=== PATIENT | female | born 1955 | race Caucasian/White ===

== ENCOUNTER 2019-11-02 05:49 | Day surgery (SDC) | payer MEDICARE, MEDICAID ==
[2019-10-26 15:00] LABS: BASOPHILS % (AUTO) 0.9 % (0-1); EOSINOPHILS # (AUTO) 0.1 X10'3 (0-0.9); EOSINOPHILS % (AUTO) 1.4 % (0-6); LYMPHOCYTES # (AUTO) 1.9 X10'3 (1.1-4.8); LYMPHOCYTES % (AUTO) 34.7 % (21-51); MEAN CORPUSCULAR HEMOGLOBIN 30.6 PG (27.0-31.0); MEAN CORPUSCULAR HGB CONC 33.4 g/dL (33.0-36.5); MEAN CORPUSCULAR VOLUME 91.7 FL (78-98); MEAN PLATELET VOLUME 6.2 FL (7.4-10.4); MONOCYTES # (AUTO) 0.4 X10'3 (0-0.9); MONOCYTES % (AUTO) 7.1 % (2-12); NEUTROPHILS % (AUTO) 55.9 % (42-75); PRE OP HEMATOCRIT 38.3 % (35.0-45.0); PRE OP HEMOGLOBIN 12.8 g/dL (12.0-16.0); PRE OP PLATELET COUNT 260 X10'3 (140-440); RED BLOOD COUNT 4.17 X10'6 (4.20-5.60); RED CELL DISTRIBUTION WIDTH 13.3 % (11.5-14.5)
[2019-10-26 15:18] LABS: ALBUMIN 3.6 G/DL (3.4-5.0); ALBUMIN/GLOBULIN RATIO 1.1 (1.1-1.5); ALKALINE PHOSPHATASE 74 IU/L (46-116); BLOOD UREA NITROGEN 18 MG/DL (7-18); BUN/CREATININE RATIO 26.5 (6.6-38.0); CALCIUM 9.1 MG/DL (8.5-10.1); CHLORIDE 108 MMOL/L (99-107); CREATININE 0.68 MG/DL (0.40-0.90); PRE OP ALT 26 U/L (30-65); PRE OP ANION GAP 9 (8-16); PRE OP AST 17 U/L (10-37); PRE OP BILIRUB, TOTAL 0.2 MG/DL (0.0-1.0); PRE OP GLUCOSE 106 MG/DL (70-104); PRE OP POTASSIUM 3.9 MMOL/L (3.4-5.1); PRE OP SODIUM 144 MMOL/L (135-145); TOTAL CARBON DIOXIDE 26.9 MMOL/L (24-32); TOTAL PROTEIN 6.9 G/DL (6.4-8.2); eGFR 88 ML/MIN
[~2019-11-02] VITALS: Ht 162.6 cm; Wt 72.1 kg
[~2019-11-02 05:49] MED LIST: ACET-3284 PO; CARB1TAB41 PO; IBUP-1984 PO; PRAM0.129 PO; QUET100T33 PO; TRAZ-256 PO; VITAMIN D3 PO; ceFAZolin 2gm in dextrose, iso 50 ML IV ONE; famotidine 20mg tablet PO ONE; ringers solution, lacted 1,000 ML IV SCH
[2019-11-02 05:55] VITALS: BP 133/82
--- NOTE | 2019-11-02 07:45 | NUR ---
PT TEARFUL, STATES "IT HURTS". SHE FURTHER STATES SHE "WAS AFRAID TO SHOW US BECAUSE SURGERY MAY BE CANCELED". PT THEN PULLS DOWN HER MASK, THE LEFT UPPER LIP IS RED AND SWOLLEN AND THE LEFT CHEEK IS SWOLLEN. PT STATES HER LIP STARTED GETTING RED AND SWOLLEN YESTERDAY MORNING. DR VANG NOTIFIED BY PHONE AND DR MINER AT THE BEDSIDE. OKAY TO PROCEED WITH SURGERY AT THIS POINT. PT INSTRUCTED TO F/U WITH PRIMARY MD OR CLINIC POST -OP.
[2019-11-02] MEDS ORDERED: LIDOcaine 0.5% (5mg/ml) 50ml vial ONE (08:00)
[2019-11-02] MEDS ORDERED: MIDAZolam 1mg/ml 10ml vial ONE (08:05)
[2019-11-02] MEDS ORDERED: fentaNYL/PF 50MCG/1 ML 2ML syringe ONE (08:05)
[2019-11-02] MEDS ORDERED: ringers solution, lacted 1,000 ML IV SCH (08:12)
[2019-11-02] MEDS ORDERED: hydrALAZINE 20mg/ml inj. IV PRN (08:15)
[2019-11-02] MEDS ORDERED: ondansetron/PF 4mg/2ml inj IV PRN (08:15)
[2019-11-02] MEDS ORDERED: morphine 2 MG/ML inj. syringe IV PRN (08:15)
[2019-11-02] MEDS ORDERED: morphine 4 MG/ML inj SYRINge IV PRN (08:15)
[2019-11-02] MEDS ORDERED: labetalol 20mg/4ml (5mg/ml) syringe IV PRN (08:15)
[2019-11-02] MEDS ORDERED: fentaNYL/PF 50MCG/1 ML 2ML syringe IV PRN ×2 (08:15)
[2019-11-02] MEDS ORDERED: propofol 10mg/ml 20ml vial IV ONE (08:36)
[2019-11-02] MEDS ORDERED: triamcinolone acetonide 40mg/ml inj ONE (08:44)
[2019-11-02] MEDS ORDERED: BUPIVAcaine/PF 2.5 mg/ml (0.25%) 30ml vial ONE (08:44)
[2019-11-02 09:10] VITALS: BP 114/75
--- NOTE | 2019-11-02 09:10 | NUR ---
Received from OR via [facility], accompanied by Anesthesiologist Zeeshan and report given by Anesthesiolgist. PATIENT A&OX4, DENIES PAIN, V/S WNL mask to 10L [id number], NEUROVASCULAR CHECKS INTACT, 20G PIV R hand, SCD ON, DRESSING TO RIGHT WRIST CDI ELEVATED WITH ICEBAG APPLIED.
[2019-11-02 09:20] VITALS: BP 129/80
[2019-11-02 09:25] VITALS: BP 116/74
[2019-11-02 09:30] VITALS: BP 138/81
[2019-11-02 09:40] VITALS: BP 130/91
--- NOTE | 2019-11-02 10:10 | NUR ---
PATIENT A&OX4, DENIES PAIN, V/S WNL, NEUROVASCULAR CHECKS INTACT, 20G PIV LUE D/C, SCD OFF, DRESSING TO RIGHT WRIST CDI ELEVATED WITH ICEBAG APPLIED. I HAVE REVIEWED D/C INSTRUCTIONS WITH PATIENT AND FAMILY AND THEY HAVE VERBALIZED UNDERSTANDING. PATIENT D/C HOME WITH ALL BELONGINGS AND FAMILY GAVE TRANSPORT HOME. PT states pain meds have called in to pharmacy from MD office.
--- NOTE | 2019-11-02 10:10 | NUR ---
Recommended to patient to go to GP and have her facial abscess seen and assessed. Pt states she will follow up.
[2019-11-02] MEDS ORDERED: BUPIVAcaine/PF 2.5mg/ml (0.25%) 10ml vial IJ ONE (14:38)
== END 2019-11-02 10:10 | disposition home or self-care (01) ==
LOC: PAS 05:49
PROVIDERS: ATTEND Orthopaedic Surgery Hand Surgery
DX: M65.332 Trigger finger, left middle finger (principal); M65.342 Trigger finger, left ring finger; M65.331 Trigger finger, right middle finger; F17.210 Nicotine dependence, cigarettes, uncomplicated; Z11.59 Encounter for screening for other viral diseases; M81.0 Age-related osteoporosis without current pathological fracture; F41.9 Anxiety disorder, unspecified; F31.9 Bipolar disorder, unspecified; Z79.899 Other long term (current) drug therapy; Z88.8 Allergy status to other drugs, medicaments and biological substances
CPT/HCPCS: 20550; 26055; 36415; 80053; 82948; 85025; 93005; J2001; J2250; J2704; J3010; J3301; J3490; U0003; A4215; J7120

== ENCOUNTER 2020-01-01 06:32 | Day surgery (SDC) | payer MEDICARE, MEDICAID ==
[2019-12-23 11:16] LABS: BASOPHILS % (AUTO) 0.7 % (0-1); EOSINOPHILS # (AUTO) 0.1 X10'3 (0-0.9); EOSINOPHILS % (AUTO) 1.3 % (0-6); LYMPHOCYTES # (AUTO) 2.1 X10'3 (1.1-4.8); LYMPHOCYTES % (AUTO) 35.9 % (21-51); MEAN CORPUSCULAR HEMOGLOBIN 30.1 PG (27.0-31.0); MEAN CORPUSCULAR HGB CONC 33.1 g/dL (33.0-36.5); MEAN PLATELET VOLUME 6.6 FL (7.4-10.4); MONOCYTES # (AUTO) 0.4 X10'3 (0-0.9); MONOCYTES % (AUTO) 6.2 % (2-12); NEUTROPHILS # (AUTO) 3.3 X10'3 (1.8-7.7); NEUTROPHILS % (AUTO) 55.9 % (42-75); PRE OP HEMATOCRIT 41.4 % (35.0-45.0); PRE OP HEMOGLOBIN 13.7 g/dL (12.0-16.0); PRE OP PLATELET COUNT 299 X10'3 (140-440); RED BLOOD COUNT 4.55 X10'6 (4.20-5.60); RED CELL DISTRIBUTION WIDTH 13.9 % (11.5-14.5)
[2019-12-23 11:29] LABS: ALBUMIN 3.8 G/DL (3.4-5.0); ALBUMIN/GLOBULIN RATIO 1.1 (1.1-1.5); ALKALINE PHOSPHATASE 92 IU/L (46-116); BLOOD UREA NITROGEN 15 MG/DL (7-18); BUN/CREATININE RATIO 19.5 (6.6-38.0); CALCIUM 8.9 MG/DL (8.5-10.1); CHLORIDE 105 MMOL/L (99-107); CREATININE 0.77 MG/DL (0.40-0.90); PRE OP ALT 23 U/L (30-65); PRE OP ANION GAP 7 (8-16); PRE OP AST 13 U/L (10-37); PRE OP BILIRUB, TOTAL 0.3 MG/DL (0.0-1.0); PRE OP GLUCOSE 98 MG/DL (70-104); PRE OP SODIUM 139 MMOL/L (135-145); TOTAL CARBON DIOXIDE 27.2 MMOL/L (24-32); TOTAL PROTEIN 7.2 G/DL (6.4-8.2); eGFR 76 ML/MIN
[~2020-01-01] VITALS: Ht 162.6 cm; Wt 76.0 kg
[~2020-01-01 06:32] MED LIST changes: -ceFAZolin 2gm in dextrose, iso 50 ML IV ONE; +cefazolin/dext.iso 2gm/50ml 50 ML IV ONE
[2020-01-01] MEDS ORDERED: LIDOcaine 0.5% (5mg/ml) 50ml vial ONE (07:22)
[2020-01-01 07:50] VITALS: BP 123/78
[2020-01-01] MEDS ORDERED: ringers solution, lacted 1,000 ML IV SCH (09:51)
[2020-01-01] MEDS ORDERED: ondansetron/PF 4mg/2ml inj IV PRN (09:55)
[2020-01-01] MEDS ORDERED: fentaNYL/PF 50MCG/1 ML 2ML syringe IV PRN ×2 (09:55)
[2020-01-01] MEDS ORDERED: morphine 4 MG/ML inj SYRINge IV PRN (09:55)
[2020-01-01] MEDS ORDERED: morphine 2 MG/ML inj. syringe IV PRN (09:55)
[2020-01-01] MEDS ORDERED: hydrALAZINE 20mg/ml inj. IV PRN (09:55)
[2020-01-01] MEDS ORDERED: labetalol 20mg/4ml (5mg/ml) syringe IV PRN (09:55)
[2020-01-01] MEDS ORDERED: BUPIVAcaine/PF 2.5mg/ml (0.25%) 10ml vial ONE (12:12)
[2020-01-01] MEDS ORDERED: MIDAZolam 5mg/5ml vial ONE (12:41)
[2020-01-01] MEDS ORDERED: fentaNYL/PF 50MCG/1 ML 2ML syringe ONE (12:41)
[2020-01-01] MEDS ORDERED: ketorolac trometh. 30mg/ml inj. ONE (13:00)
[2020-01-01 13:14] VITALS: BP 96/51
--- NOTE | 2020-01-01 13:14 | NUR ---
Received from OR via [facility] , accompanied by Anesthesiologist KRISTOFER and report given by Anesthesiolgist. PATIENT WITH 20G PIV IN LEFT UE RUNNING LR AT 100..DENIES PAIN TO RIGHT HAND. RIGHT MIDDLE FINGER DRESSING IS SPOTTED WITH BLOOD BUT CONTAINED WITHIN DRESSING. Addendum: 01/01/20 at 1326 by Servando Dalal RN, RN Amended: Links added.
[2020-01-01 13:24] VITALS: BP 100/51
[2020-01-01 13:34] VITALS: BP 90/60
[2020-01-01 13:44] VITALS: BP 105/61
[2020-01-01 13:54] VITALS: BP 111/65
--- NOTE | 2020-01-01 14:04 | NUR ---
PATIENT HAS MET ALL DC CRITERIA FOR HOME. VSS. PAIN AT A TOLERABLE LEVEL. PATIENT TAKEN OUT VIA WHEELCHAIR TO PERSONAL VEHICLE WHERE PATIENT WAS TAKEN HOME. DRESSING CDI. ALL DC INSTRUCTIONS DISCUSSED WITH PATIENT. ALL QUESTIONS ANSWERED. Addendum: 01/01/20 at 1418 by Servando Dalal RN RN Amended: Links added.
== END 2020-01-01 14:04 | disposition home or self-care (01) ==
LOC: PAS 06:32
PROVIDERS: ATTEND Orthopaedic Surgery Hand Surgery
DX: M65.331 Trigger finger, right middle finger (principal); B07.8 Other viral warts; F31.9 Bipolar disorder, unspecified; F41.9 Anxiety disorder, unspecified; G25.81 Restless legs syndrome; F17.210 Nicotine dependence, cigarettes, uncomplicated; K21.9 Gastro-esophageal reflux disease without esophagitis; M19.90 Unspecified osteoarthritis, unspecified site; M41.9 Scoliosis, unspecified; G89.4 Chronic pain syndrome; M19.011 Primary osteoarthritis, right shoulder; E66.8 Other obesity; Z68.28 Body mass index [BMI] 28.0-28.9, adult; I27.29 Other secondary pulmonary hypertension; M81.0 Age-related osteoporosis without current pathological fracture; M85.80 Other specified disorders of bone density and structure, unspecified site; Z98.890 Other specified postprocedural states; Z90.710 Acquired absence of both cervix and uterus; Z98.51 Tubal ligation status; Z79.899 Other long term (current) drug therapy; Z20.828 Contact with and (suspected) exposure to other viral communicable diseases; Z88.8 Allergy status to other drugs, medicaments and biological substances
CPT/HCPCS: 11420; 26055; 36415; 80053; 82948; 85025; 87635; A6222; J1885; J2001; J2250; J3010; J3490; A4215; A6449; J7120

== ENCOUNTER 2021-08-18 06:51 | Day surgery (SDC) | payer MEDICARE, MEDICAID ==
[2021-08-11 14:36] LABS: BASOPHILS % (AUTO) 0.7 % (0-1); EOSINOPHILS # (AUTO) 0.1 X10'3 (0-0.9); EOSINOPHILS % (AUTO) 2.2 % (0-6); LYMPHOCYTES # (AUTO) 2.5 X10'3 (1.1-4.8); MEAN CORPUSCULAR HEMOGLOBIN 30.2 PG (27.0-31.0); MEAN CORPUSCULAR HGB CONC 34.6 g/dL (33.0-36.5); MEAN CORPUSCULAR VOLUME 87.1 FL (78-98); MEAN PLATELET VOLUME 6.4 FL (7.4-10.4); MONOCYTES # (AUTO) 0.4 X10'3 (0-0.9); MONOCYTES % (AUTO) 6.2 % (2-12); NEUTROPHILS # (AUTO) 3.3 X10'3 (1.8-7.7); NEUTROPHILS % (AUTO) 51.9 % (42-75); PRE OP HEMATOCRIT 37.4 % (35.0-45.0); PRE OP HEMOGLOBIN 12.9 g/dL (12.0-16.0); PRE OP PLATELET COUNT 272 X10'3 (140-440); RED BLOOD COUNT 4.29 X10'6 (4.20-5.60); RED CELL DISTRIBUTION WIDTH 13.1 % (11.5-14.5)
[2021-08-11 14:41] LABS: CLARITY,URINE CLEAR (Clear); COLOR,URINE YELLOW (Yellow); GLUCOSE, URINE NEGATIVE (Neg); KETONES,URINE NEGATIVE (Neg); LEUKOCYTE ESTERASE ,URINE NEGATIVE (Neg); NITRITES, URINE NEGATIVE (Neg); OCCULT BLOOD,URINE TRACE-INTACT (Neg); PROTEIN,URINE NEGATIVE (Neg); UROBILINOGEN,URINE 0.2 E.U/dL (0.2-1.0)
[2021-08-11 14:46] LABS: UA COLLECTION TYPE CLN CATCH MIDSTREAM
[2021-08-11 14:47] LABS: BACTERIA,URINE FEW /HPF (Neg); MUCUS STRANDS MODERATE /LPF (Neg); RBC,URINE 0-2 /HPF (0-2); SQUAMOUS EPITHELIAL CELL,UR MODERATE /LPF (FEW); WBC,URINE 0-4 /HPF (0-4)
[2021-08-11 14:51] LABS: ALBUMIN 3.6 G/DL (3.4-5.0); ALBUMIN/GLOBULIN RATIO 1.2 (1.1-1.5); ALKALINE PHOSPHATASE 89 IU/L (46-116); BLOOD UREA NITROGEN 16 MG/DL (7-18); BUN/CREATININE RATIO 21.9 (6.6-38.0); CALCIUM 8.9 MG/DL (8.5-10.1); CHLORIDE 103 MMOL/L (99-107); CREATININE 0.73 MG/DL (0.40-0.90); PRE OP ALT 25 U/L (30-65); PRE OP ANION GAP 9 (8-16); PRE OP AST 18 U/L (10-37); PRE OP BILIRUB, TOTAL 0.2 MG/DL (0.0-1.0); PRE OP GLUCOSE 114 MG/DL (70-104); PRE OP POTASSIUM 3.7 MMOL/L (3.4-5.1); PRE OP SODIUM 139 MMOL/L (135-145); TOTAL CARBON DIOXIDE 27.5 MMOL/L (24-32); TOTAL PROTEIN 6.7 G/DL (6.4-8.2); eGFR 81 ML/MIN
[2021-08-18] VITALS (11 sets, daily range): BP systolic 93–138; BP diastolic 57–82
[~2021-08-18] VITALS: Ht 162.6 cm; Wt 79.1 kg
[~2021-08-18 06:51] MED LIST changes: -ACET-3284 PO; +ASCO1500 PO; -CARB1TAB41 PO; +DICL100T85 TOP; +DIPH-689 PO; +METH-797 PO; -QUET100T33 PO; +QUET100T34 PO; -VITAMIN D3 PO; +[UNRECOGNIZED DRUG - CODE] PO; +[UNRECOGNIZED DRUG - OTHER] PO; +calm PO; -cefazolin/dext.iso 2gm/50ml 50 ML IV ONE; +tumeric PO
--- NOTE | 2021-08-18 07:00 | NUR ---
CMS: PEDAL PULSES STRONG. FEET PINK,WARM, AND DRY. PATIENT EXHIBITS SENSATION. PULSES MARKED
[2021-08-18] MEDS ORDERED: ceFAZolin 2gm in dextrose, iso 50 ML IV STA (07:29)
[2021-08-18] MEDS ORDERED: morphine 2 MG/ML inj. syringe IV PRN (07:55)
[2021-08-18] MEDS ORDERED: ondansetron/PF 4mg/2ml inj IV PRN (07:55)
[2021-08-18] MEDS ORDERED: meperidine/PF 25mg/ml syringe IV PRN ×3 (07:55)
[2021-08-18] MEDS ORDERED: proCHLORperazine 10 MG/2 ml inj IV PRN (07:55)
[2021-08-18] MEDS ORDERED: ringers solution, lacted 1,000 ML IV SCH (07:55)
[2021-08-18] MEDS ORDERED: morphine 4 MG/ML inj SYRINge IV PRN (07:55)
[2021-08-18] MEDS ORDERED: sevoflurane 250ml liquid IH ONE (09:32)
[2021-08-18] MEDS ORDERED: midazolam 1 mg/ML 2ml injection ONE (09:40)
[2021-08-18] MEDS ORDERED: fentaNYL/PF 50MCG/1 ML 2ML syringe ONE ×2 (09:40→10:01)
[2021-08-18] MEDS ORDERED: propofol inj 20 ML IV ONE (09:42)
[2021-08-18] MEDS ORDERED: LIDOcaine 2% (20mg/ml) 5ml vial ONE (09:42)
[2021-08-18] MEDS ORDERED: BUPIVAcaine/PF 7.5mg/ml (0.75%) 10ml vial ONE (09:50)
[2021-08-18] MEDS ORDERED: dexamethasone sod phosphate 4mg/ml inj. ONE (10:10)
[2021-08-18] MEDS ORDERED: ondansetron/PF 4mg/2ml inj ONE (10:10)
[2021-08-18] MEDS ORDERED: bacitracin 15gm ointment TP ONE (10:11)
--- NOTE | 2021-08-18 11:17 | NUR ---
Received from OR [facility] , accompanied by Anesthesiologist DR FRANCISCO and report given by Anesthesiolgist. PT PRESENTS WITH PIV 20G RIGHT WRIST, DRESSING ON LEFT FOOT, BLOOD TINGED ON HEEL, VSS. Addendum: 08/18/21 at 1135 by Diana Dalal RN, RN Amended: Links added.
--- NOTE | 2021-08-18 11:34 | NUR ---
PT'S DRESSING RE-WRAPPED WITH 4X4, GAUZE BANDAGE AND ELASTIC BANDAGE. Addendum: 08/18/21 at 1135 by Diana Dalal RN, RN Amended: Links added.
--- NOTE | 2021-08-18 12:17 | NUR ---
PT SITTING UP IN BED EATING ICE CHIPS, JELLO AND 4 PACKAGES OF FRANCES CRACKERS. PT ASKING TO GO HOME AT THIS TIME. Addendum: 08/18/21 at 1218 by Diana Dalal RN, RN Amended: Links added.
--- NOTE | 2021-08-18 12:47 | NUR ---
PT MEETS ALL DC CRITERIA. IV DC'D WITH CANULA INTACT, LEFT FOOT/HEEL DRESSING CDI, NO DRAINAGE NOTED AT THIS TIME. PT GIVEN BOOT FOR PARTIAL WEIGHT BEARING ALONG WITH CRUTCHES. DC INSTRUCTIONS REVIEWED WITH PT, PT VERBALIZED UNDERSTANDING WITH NO FURTHER QUESTIONS AT THIS TIME. PT REPORTS SHE PICKED UP RX FROM DR KENYON. PT WHEELED OUT OF HOSPITAL TO PRIVATE VEHICLE WHERE WAS WAITING. PT ADVISED TO ICE AND ELEVATE QAND FOLLOWUP WITH DR KENYON IN 1-2 WEEKS. Addendum: 08/18/21 at 1424 by Diana Dalal RN, RN Amended: Links added.
== END 2021-08-18 12:47 | disposition home or self-care (01) ==
LOC: PAS 06:51
PROVIDERS: ATTEND Podiatrist Foot & Ankle Surgery
DX: M96.0 Pseudarthrosis after fusion or arthrodesis (principal); F41.9 Anxiety disorder, unspecified; F31.9 Bipolar disorder, unspecified; G89.4 Chronic pain syndrome; M81.0 Age-related osteoporosis without current pathological fracture; M19.011 Primary osteoarthritis, right shoulder; E66.8 Other obesity; Z68.24 Body mass index [BMI] 24.0-24.9, adult; I27.29 Other secondary pulmonary hypertension; G20 Parkinson's disease; M85.80 Other specified disorders of bone density and structure, unspecified site; F17.210 Nicotine dependence, cigarettes, uncomplicated; K21.9 Gastro-esophageal reflux disease without esophagitis; M41.9 Scoliosis, unspecified; G25.81 Restless legs syndrome; G89.18 Other acute postprocedural pain; Z20.822 Contact with and (suspected) exposure to COVID-19; Z79.899 Other long term (current) drug therapy; Z79.82 Long term (current) use of aspirin; Z88.8 Allergy status to other drugs, medicaments and biological substances; Z98.890 Other specified postprocedural states; Z90.710 Acquired absence of both cervix and uterus; Z98.51 Tubal ligation status
CPT/HCPCS: 20680; 20900; 28750; 36415; 64447; 64450; 73620; 76000; 80053; 81001; 82948; 85025; 93005; A6223; C1713; J0690; J1100; J2250; J2405; J2704; J3010; J3490; J7030; J7120; U0003; U0005; Z7506; Z7508; Z7512; A4215; A4618; A6446; A6449; A7000

== ENCOUNTER 2024-07-06 09:11 | Emergency (ER) | payer MEDICARE, MEDICAID ==
[~2024-07-06] VITALS: Ht 162.6 cm; Wt 68.2 kg
[~2024-07-06 09:11] MED LIST changes: -famotidine 20mg tablet PO ONE; -ringers solution, lacted 1,000 ML IV SCH
[2024-07-06 09:37] VITALS: BP 152/76; PULSE 89; RESP 16; TEMP 98.1; O2SAT 97
== END 2024-07-06 11:27 | disposition home or self-care (01) ==
LOC: ER 09:12
DX: M79.671 Pain in right foot (principal)
CPT/HCPCS: 73630; 99283; L4360

== ENCOUNTER 2024-09-24 21:36 | Emergency (ER) | payer MEDICARE, MEDICAID ==
[~2024-09-24] VITALS: Ht 162.6 cm; Wt 68.2 kg
[~2024-09-24 21:36] MED LIST changes: -DICL100T85 TOP; +DICL100T97 TOP
[2024-09-24 21:38] VITALS: BP 145/82; PULSE 98; RESP 18; O2SAT 99
--- NOTE | 2024-09-24 21:54 | Physician Documentation ---
History of Present Illness ~ Chief Complaint: Foreign body Stated Complaint: FISH HOOK IN HAND Time Seen by MD: 21:54 Primary Medical Doctor: None HPI Patient presents to the emergency room for evaluation of hook in her left thumb. Patient suffered the injury as a lower was sitting on her kitchen counter and she accidentally put her hand on it. Unknown tetanus. Medication Reconciliation Allergies: Coded Allergies: BERRY Inhibitors (Verified Allergy, Unknown, BAD COUGH, 09/24/24) Scheduled Ascorbic Acid (Vitamin C), 1,600 MG PO BID, (Reported) Diclofenac Sodium (Diclofenac Sodium ER), 4 GM TOP Q6H, (Reported) Pramipexole Di-Hcl (Pramipexole Dihydrochloride), 3 TAB PO HS, (Reported) Quetiapine Fumarate (Quetiapine Fumarate), 1 TAB PO HS, (Reported) Trazodone HCl (Trazodone HCl), 2 TAB PO HS, (Reported) [tumeric ], 1 TAB PO DAILY, (Reported) Scheduled PRN Acetaminophen (Arthritis Pain Reliever), 1 TAB PO Q8H PRN for pain, (Reported) Diphenhydramine Hcl (Zzzquil), 25 MG PO HS PRN for insomnia, (Reported) Ibuprofen* (Motrin*), 800 MG PO Q8H PRN for pain, (Reported) Methocarbamol (Methocarbamol), 2 TAB PO Q4H PRN for pain, (Reported) [calm ], 2 CAP PO DAILY PRN for anxiety, (Reported) [proboslim], 1 TAB PO DAILY PRN for constipation, (Reported) Review of Systems ROS All review of systems negative except as per HPI Physical Exam Vital Signs: Temperature: 98.7, Source: Oral, Heart Rate: 98, Respiratory Rate: 18, BP: 145/82, Pulse Oximetry: 99, Weight: 68.180 Physical Exam General: Patient is awake, alert, oriented x4 in mild distress Head: Normocephalic and atraumatic. Eyes: Conjunctival normal. EOMI. PERRL. ENT: Mucous membranes moist. Neck: Supple, trachea is midline. Chest: Clear to auscultation bilaterally without rales, rhonchi, or wheezes. There is no accessory muscle use or retractions. Cardiac: RRR without murmurs, gallops, or rubs. Extremities: Pray stuck and patient's left thumb pad with amy imbedded beneath the skin Procedures Procedures Fish hook removal: Status post informed verbal consent patient was sterilely cleaned and draped. Patient was anesthetized with 0.5 cc of lidocaine with epinephrine. Using pliers fish hook was removed using traction. Small incision needed to be made with 11 blade. Hook removed in its entirety. I do not feel patient requires an x-ray. Patient tolerated procedure well without complication. Total time of procedure 5 minutes Progress Results/Orders Results/Orders Orders - ANTHONY NEVAREZ MD Dressing Orders (09/24/24 22:14) Wound Care Orders (09/24/24 22:14) Completed Orders - ANTHONY NEVAREZ MD Tetanus/Pertuss/Diph Acell/Pf (Boostrix (09/24/24 22:15) Bacitracin Ointment (Bacitracin Ointment (09/24/24 22:15) Medications Received in ER Medications (Trade) Dose Ordered Sig/Marychuy Route PRN Reason Start Time Stop Time Status Last Admin Dose Admin (Boostrix vaccine syringe) 0.5 ml ONCE ONCE IMVAC 09/24/24 22:15 09/24/24 22:16 DC 09/24/24 22:33 0.5 ML (bacitracin ointment) 1 applic ONCE ONCE TP 09/24/24 22:15 09/24/24 22:16 DC 09/24/24 22:32 1 APPLIC Vital Signs 09/24/24 21:38 Temp 98.7 Pulse 98 Resp 18 B/P (MAP) 145/82 Pulse Ox 99 Medical Decision Making Findings Patient presented to the emergency room for evaluation of fish hook in her left thumb. Differentials include but are not limited to foreign body, tendinous laceration, abscess, cellulitis. Given history and course in the emergency room I do not feel patient requires emergent labs or imaging. Pray removed in its entirety without complication. Wound care discussed. Patient's tetanus made to be up-to-date. I do not feel antibiotics are necessary Departure Disposition: HOME / SELF CARE / HOMELESS Impression: Primary Impression: Fish hook in finger Condition: Improved Discharge Instructions: Pray Removal Referrals: NO PRIMARY CARE PROVIDER (PCP) Signature Scribe Signature: No scribe Attestation: The note accurately reflects work and decisions made by me.Anthony Nevarez MD 09/24/24 22:40 ANTHONY NEVAREZ MD Sep 24, 2024 21:54
[2024-09-24] MEDS: bacitracin 15gm ointment TP ONE (22:32)
[2024-09-24] MEDS: TETanus/Pertussis (Acell)/Diphther VAC/PF (Tdap-Adult) 0.5ml syringe IMVAC ONE (22:33)
[2024-09-24 22:44] VITALS: TEMP 98.7
== END 2024-09-24 22:45 | disposition home or self-care (01) ==
LOC: ER 21:37
DX: S60.352A Superficial foreign body of left thumb, initial encounter (principal); W45.8XXA Other foreign body or object entering through skin, initial encounter; Y93.89 Activity, other specified; Y92.89 Other specified places as the place of occurrence of the external cause; Y99.8 Other external cause status
CPT/HCPCS: 90715; 99284; A6402; G0008; Z7610; 90471; A6449

== ENCOUNTER 2025-01-25 15:41 | Emergency (ER) | payer MEDICARE, MEDICAID ==
[~2025-01-25] VITALS: Ht 162.6 cm; Wt 72.7 kg
[2025-01-25 16:01] VITALS: BP 110/82; PULSE 100; RESP 16; TEMP 98.5; O2SAT 98
== END 2025-01-25 20:20 | disposition left against medical advice (07) ==
LOC: ER 15:42
DX: M25.561 Pain in right knee (principal); Z53.21 Procedure and treatment not carried out due to patient leaving prior to being seen by health care provider; Z88.8 Allergy status to other drugs, medicaments and biological substances
CPT/HCPCS: 99281

== ENCOUNTER 2025-01-27 12:13 | Emergency (ER) | payer MEDICARE, MEDICAID ==
[~2025-01-27] VITALS: Ht 157.5 cm; Wt 63.6 kg
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
[2025-01-27 13:28] LABS: MEAN PLATELET VOLUME 6.5 FL (7.4-10.4); RED CELL DISTRIBUTION WIDTH 14.5 % (11.5-14.5)
[2025-01-27 13:34] LABS: LEUKOCYTE ESTERASE ,URINE NEGATIVE (Neg); NITRITES, URINE NEGATIVE (Neg); OCCULT BLOOD,URINE TRACE-INTACT (Neg)
[2025-01-27 13:41] LABS: UA COLLECTION TYPE CLN CATCH MIDSTREAM
[2025-01-27 13:43] LABS: CREATININE 0.54 MG/DL (0.40-0.90); TOTAL CARBON DIOXIDE 26.0 MMOL/L (24-32); eCRCL 80 ML/MIN; eGFR > 90 ML/MIN
[2025-01-27 13:43] LABS: MUCUS STRANDS NONE SEEN /LPF (Neg); SQUAMOUS EPITHELIAL CELL,UR FEW /LPF (FEW)
[2025-01-27 13:45] LABS: URINE AMPHETAMINE SCREEN NEGATIVE (Neg); URINE BARBITUATE SCREEN NEGATIVE (Neg); URINE BENZODIAZEPINES SCREEN NEGATIVE (Neg); URINE CANNABINOID SCREEN POSITIVE (Neg); URINE COCAINE SCREEN NEGATIVE (Neg); URINE METHADONE SCREEN NEGATIVE (Neg); URINE OPIATE SCREEN NEGATIVE (Neg); URINE PHENCYCLIDINE SCREEN NEGATIVE (Neg)
[2025-01-27] MEDS: ketorolac trometh 15mg/ml vial 15 MG/ML ML IM ONE (15:38)
[2025-01-27] MEDS ORDERED: NO HOME MEDS (17:22)
[2025-01-28 05:35] VITALS: BP 176/95; PULSE 85; TEMP 98.2; O2SAT 98
[2025-01-28 10:20] VITALS: RESP 16
== END 2025-01-28 10:35 | disposition home or self-care (01) ==
LOC: EEVIPCON 12:14 → ER 12:14
DX: R45.851 Suicidal ideations (principal); Z88.8 Allergy status to other drugs, medicaments and biological substances; Z79.899 Other long term (current) drug therapy; Z20.822 Contact with and (suspected) exposure to COVID-19
CPT/HCPCS: 36415; 80053; 80305; 81001; 85025; 87811; 96372; 99285; J1885

== ENCOUNTER 2025-01-30 18:14 | Emergency (ER) | payer MEDICARE, MEDICAID ==
[~2025-01-30] VITALS: Ht 165.1 cm; Wt 54.5 kg
[~2025-01-30 18:14] MED LIST changes: -ASCO1500 PO; -DICL100T97 TOP; -DIPH-689 PO; -IBUP-1984 PO; -METH-797 PO; +NO HOME MEDS; -PRAM0.129 PO; -QUET100T34 PO; -TRAZ-256 PO; -[UNRECOGNIZED DRUG - CODE] PO; -[UNRECOGNIZED DRUG - OTHER] PO; -calm PO; -tumeric PO
[2025-01-30 18:44] LABS: LEUKOCYTE ESTERASE ,URINE NEGATIVE (Neg); NITRITES, URINE NEGATIVE (Neg); OCCULT BLOOD,URINE TRACE-INTACT (Neg)
[2025-01-30 18:46] LABS: UA COLLECTION TYPE VOIDED
[2025-01-30 18:50] LABS: URINE AMPHETAMINE SCREEN NEGATIVE (Neg); URINE BARBITUATE SCREEN NEGATIVE (Neg); URINE BENZODIAZEPINES SCREEN NEGATIVE (Neg); URINE CANNABINOID SCREEN POSITIVE (Neg); URINE COCAINE SCREEN NEGATIVE (Neg); URINE METHADONE SCREEN NEGATIVE (Neg); URINE OPIATE SCREEN NEGATIVE (Neg); URINE PHENCYCLIDINE SCREEN NEGATIVE (Neg)
[2025-01-30 18:55] LABS: SQUAMOUS EPITHELIAL CELL,UR FEW /LPF (FEW)
[2025-01-30] MEDS: ziprasidone IM 20mg inj **IM only IM ONE (19:02)
[2025-01-30] MEDS: haloperidol lactate 5mg/ml inj IM ONE (19:31)
[2025-01-30 19:39] LABS: MEAN PLATELET VOLUME 6.6 FL (7.4-10.4); RED CELL DISTRIBUTION WIDTH 14.5 % (11.5-14.5)
[2025-01-30 19:59] LABS: CREATININE 0.57 MG/DL (0.40-0.90); ETHANOL 241 MG/DL (<10); TOTAL CARBON DIOXIDE 24.9 MMOL/L (24-32); eCRCL 82 ML/MIN; eGFR > 90 ML/MIN
--- NOTE | 2025-01-31 01:27 | Physician Documentation ---
History of Present Illness ~ Chief Complaint: 5150 Stated Complaint: 5150 Time Seen by MD: 18:20 Primary Medical Doctor: None Mode of Arrival: Police HPI This is a 69-year-old female with a known history of alcoholism brought in here for suicidal and homicidal ideation. She wants to kill herself and kill her . She is currently drunk. She denies any somatic complaints, although reliability of the statement it can be questioned given belligerent and bizarre behavior of the patient. History, review of systems, physical examination are limited secondary to patient's noncompliance with a clinical condition/intoxication. Medication Reconciliation Allergies: Coded Allergies: BERRY Inhibitors (Verified Allergy, Unknown, BAD COUGH, 01/30/25) Miscellaneous Medications Home Med List (No Home Medications), (Reported) Discontinued Medications Acetaminophen (Arthritis Pain Reliever), 1 TAB PO Q8H PRN for pain, (Reported) Discontinued Reason: Other Ascorbic Acid (Vitamin C), 1,600 MG PO BID, (Reported) Discontinued Reason: Other Diclofenac Sodium (Diclofenac Sodium ER), 4 GM TOP Q6H, (Reported) Discontinued Reason: Other Diphenhydramine Hcl (Zzzquil), 25 MG PO HS PRN for insomnia, (Reported) Discontinued Reason: Other Ibuprofen* (Motrin*), 800 MG PO Q8H PRN for pain, (Reported) Discontinued Reason: Other Methocarbamol (Methocarbamol), 2 TAB PO Q4H PRN for pain, (Reported) Discontinued Reason: Other Pramipexole Di-Hcl (Pramipexole Dihydrochloride), 3 TAB PO HS, (Reported) Discontinued Reason: Other Quetiapine Fumarate (Quetiapine Fumarate), 1 TAB PO HS, (Reported) Discontinued Reason: Other Trazodone HCl (Trazodone HCl), 2 TAB PO HS, (Reported) Discontinued Reason: Other [calm ], 2 CAP PO DAILY PRN for anxiety, (Reported) Discontinued Reason: Other [proboslim], 1 TAB PO DAILY PRN for constipation, (Reported) Discontinued Reason: Other [tumeric ], 1 TAB PO DAILY, (Reported) Discontinued Reason: Other Review of Systems ROS Limited as above Physical Exam Vital Signs: Temperature: 97.9, Source: Oral, Heart Rate: 91, Respiratory Rate: 20, BP: 114/64, Pulse Oximetry: 96, Weight: 54.550 Physical Exam Physical examination: GENERAL: Awake, no apparent distress, non-toxic appearing, answers questions in the very limited fashion, does not not follows commands appropriately. The patient started off by incessantly [place] in the room. It is very difficult to get any answers from her. After she was change in the green gown, she ended up lying on the floor and pain in her herself as well as popping on herself. HEENT: Atraumatic, normocephalic, pupils equal, extraocular muscles intact Active gross movements, sclerae anicteric, mucus membranes moist, no stridor. NECK: Midline, no JVD CARDIOVASCULAR: Good skin perfusion without evidence of pallor, mottling. PULMONARY: Nonlabored, symmetric chest rise, no audible wheezing, no accessory muscle use, no respiratory distress, speaking in full sentences. GASTROINTESTINAL: Not distended. NEUROLOGIC: Lucid with drunk mental status. Normal facial symmetry. Moves all extremities symmetrically and with purpose. No truncal ataxia. Speech is fluid without evidence of dysarthria or aphasia, no focal deficits appreciated. EXTREMITIES: Acute deformities Skin: warm, dry PSYCHIATRIC: Unable to assess Progress Results/Orders Results/Orders Orders - MIGUEL AMIN DO Med Rec (01/30/25 18:20) 1799.11 (01/30/25 18:20) Close Observation Level (01/30/25 18:20) Covid19 Binax Poc Result Entry (01/30/25 18:20) Substance Use Navigator (01/30/25 18:20) Regular Diet (01/31/25 Breakfast) Completed Orders - MIGUEL AMIN DO Cbc/Diff (01/30/25 18:20) Drug Screen, Urine (01/30/25 18:20) Ethanol (01/30/25 18:20) TSH (01/30/25 18:20) BMP (01/30/25 18:20) Ua With Microscopic (01/30/25 18:23) Ziprasidone Im Inj. (Geodon ImIm Onl (01/30/25 18:55) Haloperidol Lact. (Haldol) (01/30/25 19:15) Lorazepam Inj (Ativan Inj) (01/30/25 19:15) Diphenhydramine Inj (Benadryl Inj.) (01/30/25 19:15) Medications Received in ER Medications (Trade) Dose Ordered Sig/Marychuy Route PRN Reason Start Time Stop Time Status Last Admin Dose Admin (Geodon IMIM ONLY) 20 mg ONCE ONCE IM 01/30/25 18:55 01/30/25 18:56 DC 01/30/25 19:02 20 MG (Haldol) 5 mg ONCE ONCE IM 01/30/25 19:15 01/30/25 19:16 DC 01/30/25 19:31 5 MG (Ativan inj) 2 mg ONCE ONCE IM 01/30/25 19:15 01/30/25 19:16 DC 01/30/25 19:31 2 MG (Benadryl inj.) 50 mg ONCE ONCE IM 01/30/25 19:15 01/30/25 19:16 DC 01/30/25 19:31 50 MG Vital Signs 01/30/25 01/30/25 01/30/25 18:17 18:49 19:31 Temp 97.9 Pulse 91 Resp 20 20 B/P (MAP) 114/64 Pulse Ox 96 Laboratory Tests Test 01/30/25 18:23 01/30/25 18:30 01/30/25 19:28 Urine Specimen Description Voided Urine Color Yellow Urine Clarity Clear Urine pH 5.5 Urine Specific [place] <=1.005 Urine Protein Negative Urine Glucose (UA) Negative Urine Ketones Negative Urine Occult Blood Trace-intact Urine Nitrite Negative Urine Bilirubin Negative Urine Urobilinogen 0.2 Urine Leukocyte Esterase Negative Urine RBC 0-2 Urine WBC None seen Urine Squamous Epithelial Cells Few Urine Bacteria Few Volume Urine Centrifuged 10 ml Urine Comment Urine Opiates Screen Negative Urine Methadone Screen Negative Urine Fentanyl Screen Negative Urine Barbiturates Screen Negative Urine Phencyclidine Screen Negative Urine Amphetamines Screen Negative Urine Benzodiazepines Screen Negative Urine Cocaine Screen Negative Urine Cannabinoids Screen Positive Drug Screen Comment SARS-CoV-2 Antigen (Rapid) Negative White Blood Count 7.4 Red Blood Count 4.61 Hemoglobin 14.0 Hematocrit 41.7 Mean Corpuscular Volume 90.4 Mean Corpuscular Hemoglobin 30.4 Mean Corpuscular Hemoglobin Concent 33.6 Red Cell Distribution Width 14.5 Platelet Count 274 Mean Platelet Volume 6.6 L Neutrophils (%) (Auto) 60.0 Lymphocytes (%) (Auto) 32.2 Monocytes (%) (Auto) 5.5 Eosinophils (%) (Auto) 1.8 Basophils (%) (Auto) 0.5 Neutrophils # (Auto) 4.4 Lymphocytes # (Auto) 2.4 Monocytes # (Auto) 0.4 Eosinophils # (Auto) 0.1 Basophils # (Auto) 0.0 CBC Comment Sodium Level 146 H Potassium Level 3.7 Chloride Level 109 H Carbon Dioxide Level 24.9 Anion Gap 12 Blood Urea Nitrogen 21 H Creatinine 0.57 Estimated GFR/1.73 m2 > 90 BUN/Creatinine Ratio 36.8 H Glucose Level 106 H Calcium Level 8.6 Albumin 3.7 Thyroid Stimulating Hormone (TSH) 1.56 Chemistry Comments Ethyl Alcohol Level 241 H Medical Decision Making Findings Facility Status: ED Holds, [facility] process The plan was discussed with the patient, who demonstrates clear understanding of the plan and is in agreement with the plan unless otherwise noted in the chart. All questions have been answered, all concerns were addressed unless otherwise documented. I was available throughout their ED stay for frequent reassessment and questions. Differential Diagnoses (considered and possible or likely): [Suicidal ideation, homicidal ideation, alcohol intoxication, unlikely to be delirium secondary to thyrotoxicosis, urinary tract infection. Drug toxidrome had also been considered.] ??Differential Diagnoses (considered and unlikely, not requiring evaluation currently): [Denies somatic complaints] MDM Data Please see [facility] for the following: Independent Historians and external Records Review. Historian: [Patient] Independent Historians: ?[[facility]] Medication Management: [Reviewed medication list] Social History and determinants: [Reviewed] Please see the body of the note for the following: Any independent interpretations of ECG, imaging studies. All vitals signs/haemodynamics, ordered tests were independently reviewed and interpreted by myself. Nursing triage complaint and vitals reviewed, additional nursing notes were reviewed as available and I agree unless otherwise noted or documented in contradiction in the chart Vital Signs: Independently reviewed Labs: Independently interpreted Imaging: Independently interpreted Old Medical Records: Independently reviewed, see HPI for relevant summary and information Pulse Oximetry: [96%] interpreted as [normal on room air] by me Additionally notably showing: [Hemodynamically stable. No evidence of hypotension, respiratory distress, tachycardia. Laboratory studies notable for dehydration, alcohol was 241, the lady is pissed drunk. Drug screen is positive for THC.] Tests considered but not ordered include: [Imaging does not appear to be necessary] Social Determinants of Health Impact: Patient was evaluated in [facility], or [facility] [place] healthcare due to below par ratio of patient to medical providers. [] Comorbid Conditions Impacting Present Evaluation and Care/Treatment: [Alcoholism] Management Discussions with other Healthcare Providers: [Transfer orders for : At this time there is no evidence of an emergent medical condition that would preclude (admission/transfer) to a psychiatric unit via protocol for further psychiatric, as well as medical evaluation and treatment. At this time I have no reason to believe that transfer via protocol would have serious medical compromise in the patient's health.] Treatment and Disposition Medication Management (Given or considered): []. See EMR for details Consideration for Hospitalization/Escalation/Deescalation of Care: Admission for observation has been considered, [however the patient is able to tolerate p.o., their symptoms are controlled, they are able to rely on oral medications, and their chief complaint/diagnosis can be managed on outpatient basis.] ?ED Course:?[There has been no clinical deterioration with a respect to somatic complaints, however the patient had several episodes of belligerent. She required extensive amount of chemical intervention and sedation. Eventually we were able to get control of her behavior.] ?Shared decision making:?[] Code status:?FULL Please see the full Electronic Medical Record for full details of nursing documentation, medications list, other records of complete past medical history and conditions, vital signs, laboratory studies, and any radiologic study interpretations by radiologists. Portions of this note were completed using [employer]ifter dictation software and as a result there may exist minor errors in spelling. I have reviewed elements of past family and social history and agree as included in note. Departure Disposition: 30 STILL A PATIENT Impression: Primary Impression: Suicidal ideation Additional Impressions: Homicidal ideation Alcohol intoxication Alcoholism Psychomotor agitation Referrals: NO PRIMARY CARE PROVIDER (PCP) Signature Scribe Signature: No scribe Attestation: Date: Jan 31, 2025 Time: 01:27 This note accurately reflects clinical decisions, work performed by myself, DO BRENNAN Ross NICHOLAS M DO Jan 31, 2025 01:27
[2025-01-31 14:33] VITALS: BP 141/68; PULSE 79; RESP 16; TEMP 98; O2SAT 97
== END 2025-01-31 14:44 | disposition home or self-care (01) ==
LOC: ER 18:14
DX: R45.851 Suicidal ideations (principal); R45.850 Homicidal ideations; F10.229 Alcohol dependence with intoxication, unspecified; R45.1 Restlessness and agitation; Y90.9 Presence of alcohol in blood, level not specified; Z20.822 Contact with and (suspected) exposure to COVID-19
CPT/HCPCS: 36415; 80048; 80305; 80320; 81001; 84443; 85025; 87811; 96372; 99285; J1200; J1630; J2060; J3486

== ENCOUNTER 2025-03-12 12:37 | Emergency (ER) | payer MEDICARE, MEDICAID ==
[~2025-03-12] VITALS: Ht 154.9 cm; Wt 76.0 kg
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
[2025-03-12 13:50] LABS: MEAN PLATELET VOLUME 6.6 FL (7.4-10.4); RED CELL DISTRIBUTION WIDTH 14.7 % (11.5-14.5)
[2025-03-12 14:12] LABS: CREATININE 0.44 MG/DL (0.40-0.90); ETHANOL 122 MG/DL (<10); TOTAL CARBON DIOXIDE 26.8 MMOL/L (24-32); eCRCL 94 ML/MIN; eGFR > 90 ML/MIN
[2025-03-12] MEDS: MIDAZolam 5mg/ml 2ml vial IM ONE (14:36)
--- NOTE | 2025-03-12 14:58 | RADIOLOGY REPORT ---
EXAM: DI SHOULDER, COMPLETE (MIN 2 VWS) HISTORY: injury, pain in shoulder and won't move it COMPARISON: None TECHNIQUE: 3 views of the right shoulder were performed. FINDINGS: No acute fracture or dislocation are identified about the right shoulder. There is glenohumeral osteoarthritis with small marginal osteophytes inferiorly. There is mild loss of subacromial space. There is thoracic degenerative disc disease, not fully imaged here. IMPRESSION: 1. No acute fracture of the right shoulder. 2. Mild glenohumeral osteoarthritis. 3. The humeral head is mildly high-riding. Consider follow-up noncontrast MRI of the right shoulder for further evaluation of the rotator cuff.
[2025-03-12] MEDS: haloperidol lactate 5mg/ml inj IM ONE (15:28)
[2025-03-12 18:08] VITALS: BP 144/89; PULSE 89; O2SAT 96
[2025-03-12 20:14] LABS: LEUKOCYTE ESTERASE ,URINE NEGATIVE (Neg); NITRITES, URINE NEGATIVE (Neg); OCCULT BLOOD,URINE SMALL (Neg)
[2025-03-12 20:23] LABS: SQUAMOUS EPITHELIAL CELL,UR FEW /LPF (FEW); UA COLLECTION TYPE CLN CATCH MIDSTREAM; URINE AMPHETAMINE SCREEN NEGATIVE (Neg); URINE BARBITUATE SCREEN NEGATIVE (Neg); URINE BENZODIAZEPINES SCREEN POSITIVE (Neg); URINE CANNABINOID SCREEN POSITIVE (Neg); URINE COCAINE SCREEN NEGATIVE (Neg); URINE METHADONE SCREEN NEGATIVE (Neg); URINE OPIATE SCREEN NEGATIVE (Neg); URINE PHENCYCLIDINE SCREEN NEGATIVE (Neg)
[2025-03-13 08:49] VITALS: RESP 16
[2025-03-13 10:44] VITALS: TEMP 98.2
== END 2025-03-13 10:46 | disposition home or self-care (01) ==
LOC: ER 12:37
DX: R45.851 Suicidal ideations (principal); F10.129 Alcohol abuse with intoxication, unspecified; Y90.9 Presence of alcohol in blood, level not specified; Z88.8 Allergy status to other drugs, medicaments and biological substances; Z20.822 Contact with and (suspected) exposure to COVID-19; Z79.899 Other long term (current) drug therapy
CPT/HCPCS: 36415; 73030; 80048; 80305; 80320; 81001; 84443; 85025; 87811; 96372; 99285; J1200; J1630; J2250